=== PATIENT | female | born 1965 | race Hispanic/Latino ===

== ENCOUNTER 2018-02-15 07:27 | Emergency (ER) | payer OTHER ==
[~2018-02-15] VITALS: Ht 157.5 cm; Wt 97.3 kg
[~2018-02-15 07:27] MED LIST: JANTOVEN3 MG PO; KLOR-CON20 MEQ PO; LEVEMIR 3M100 UNITS/ SQ; NOVOLOG100 UNIT/1 SQ; PANTOPRAZOLE SO40 MG PO; QUETIAPINE FUMA25 MG PO; TORSEMIDE10 MG PO
[2018-02-15 08:21] LABS: BILIRUBIN,URINE NEGATIVE (NEGATIVE); CLARITY,URINE CLOUDY (CLEAR); COLOR,URINE YELLOW (YELLOW); KETONES,URINE TRACE (NEGATIVE); LEUKOCYTE ESTERASE ,URINE TRACE (NEGATIVE); NITRITE,URINE NEGATIVE (NEGATIVE); PROTEIN,URINE DIPSTICK NEGATIVE (NEGATIVE); URINE UROBILINOGEN 1 mg/dL (0.2 - 1)
[2018-02-15 08:31] LABS: BACTERIA,URINE MANY /HPF; EPITHELIAL CELLS,URINE FEW /LPF; RBC,URINE 21-50 /HPF (0-5)
[2018-02-15 08:32] LABS: BASOPHILS # (AUTO) 0.1 (0.0-0.1); BASOPHILS % 0.7 % (0.0-1.0); EOSINOPHILS # (AUTO) 0.1 (0.0-0.4); EOSINOPHILS % 1.2 % (0.0-6.0); HEMOGLOBIN 15.3 g/dL (12.0-16.0); LYMPHOCYTES # (AUTO) 2.7 (1.0-3.2); LYMPHOCYTES % 25.5 % (18.0-39.1); MEAN CORPUSCULAR HEMOGLOBIN 27.8 pg (28-32); MEAN CORPUSCULAR VOLUME 81.8 fL (81-99); MONOCYTES # (AUTO) 1.2 (0.2-0.8); MONOCYTES % 11.6 % (4.4-11.3); NEUTROPHILS # (AUTO) 6.5 (2.1-6.9); NEUTROPHILS % 60.4 % (38.7-80.0); PLATELET COUNT 209 x10e3/uL (140-360); RED CELL DISTRIBUTION WIDTH 12.8 % (11.7-14.4)
[2018-02-15] MEDS ORDERED: ACETAMINOPHEN 325 MG TAB PO ONE (08:45)
[2018-02-15 08:49] LABS: ANION GAP 17.2 mmol/L (8-16); BLOOD UREA NITROGEN 13 mg/dL (7-26); BUN/CREATININE RATIO 15 (6-25); CALCIUM 9.5 mg/dL (8.4-10.2); CARBON DIOXIDE 25 mmol/L (22-29); CHLORIDE 98 mmol/L (98-107); CREATININE, SERUM 0.86 mg/dL (0.57-1.11); EST GLOMERULAR FILTRATION RATE > 60 ML/MIN (60-); GLUCOSE 348 mg/dL (74-118); POTASSIUM 4.2 mmol/L (3.5-5.1); SODIUM 136 mmol/L (136-145)
--- NOTE | 2018-02-15 09:01 | Diagnostic Imaging Report ---
PROCEDURE: CHEST SINGLE (PORTABLE) COMPARISON: None. INDICATIONS: FEVER, CHILLS, HEADACHE FINDINGS: LINES: None. LUNGS: Low lung volumes, which limits evaluation for pathology. Mild patchy opacities are present the right lung base. No evidence of pulmonary edema. PLEURA: Trace right-sided pleural effusion. No evidence of pneumothorax. HEART \T\ MEDIASTINUM: The cardiomediastinal silhouette is unremarkable. BONES \T\ SOFT TISSUES: No acute findings. CONCLUSION: Low lung volumes with mild patchy opacities at the right lung base. Findings likely represent atelectasis although aspiration or pneumonia are possible in the appropriate clinical context. Dictated by: JOSÉ ANTONIO CLEVELAND M.D. on 02/15/2018 at 9:05 Electronically approved by: JOSÉ ANTONIO CLEVELAND M.D. on 02/15/2018 at 9:05
[2018-02-15] MEDS ORDERED: CEFTRIAXONE SOD 1 GM VIAL IV ONE (11:25)
[2018-02-15] MEDS ORDERED: SODIUM CHLORIDE 0.9% 1000ML 1,000 ML ONE (11:27)
[2018-02-15] MEDS ORDERED: SODIUM CHLORIDE 0.9% 1000ML 1,000 ML IV SCH (11:30)
[2018-02-15] MEDS ORDERED: INSULIN REGULAR, HUMAN 100 UNIT/1 ML 3ML VIAL SQ ONE (14:00)
[2018-02-15 14:19] VITALS: BP 99/56
== END 2018-02-15 14:17 | disposition home or self-care (01) ==
LOC: ER 07:27
DX: R50.9 Fever, unspecified (principal); R05 Cough; R51 Headache; R30.0 Dysuria; N39.0 Urinary tract infection, site not specified
CPT/HCPCS: 36415; 71045; 80048; 81001; 83605; 85025; 87040; 99284; J0696; J7030

== ENCOUNTER 2019-02-12 08:27 | Emergency (ER) | payer OTHER ==
[~2019-02-12] VITALS: Ht 157.5 cm; Wt 97.1 kg
--- OUTSIDE RECORDS SUMMARY | 2019-02-12 08:30 | XMS REPORT ---
Author Author [facility] Address Unknown Phone Unavailable Care Team Providers Care Tractor Operator Battery Name Role Phone TRINIDADCooper GLENIS Unavailable Unavailable Problems This patient has no known problems. Allergies, Adverse Reactions, Alerts This patient has no known allergies or adverse reactions. Medications This patient has no known medications. Results Test Description Test Time Test Comments Text Results Atomic Results Result Comments SCR MAMM BILATERAL DELIA CAD DIGITAL 2018-11-26 10:04:45 - SCR MAMM BILATERAL DELIA CAD DIGITALBILATERAL DIGITAL SCREENING MAMMOGRAM 3D/2D WITH CAD: 11/23/2018CLINICAL: Asymptomatic. Digital breast tomosynthesis was performed in addition to routine CC and MLO views. Current mammographic images were evaluated by either a Calvin M-Vu or an Tour DeskD version 7.2 computer aided detection system. Comparison is made to exams dated 03/31/2017 mammogram, 03/14/2016 mammogram, and 02/03/2011 mammogram - [facility]. There are scattered fibroglandular tissues in both breasts. There are benign calcifications in both breasts. No suspicious mass, architectural distortion, malignant type calcification, or lymph node abnormality detected. Breast architecture is stable compared to prior exams.IMPRESSION: BENIGNThere is no mammographic evidence of malignancy. Resume annual screening mammography in one year. Anna brunson/penrad:11/26/2018 10:04:45 Pipe Coremaker: Yolanda RASHEED, [facility]: BIRADS 1-2 Normal Mammogram BI-RADS: 2 Benign CHEST SINGLE (PORTABLE) 2018-02-15 09:05:00 [place] [id number] Patient Name: GABY STEEN MR #: [id number] : 1965 Age/Sex: 52/F Req #: [id number] [facility] Physician: Ordered by: GLENIS ABDI MD Report #: [id number] Location: ER Room/Bed: Procedure: [id number] DX/CHEST SINGLE (PORTABLE) Exam Date: 02/15/18 Exam Time: 819 REPORT STATUS: Signed PROCEDURE: CHEST SINGLE (PORTABLE) COMPARISON: None. INDICATIONS: FEVER, CHILLS, HEADACHE FINDINGS: LINES: None. LUNGS: Low lung volumes, which limits evaluation for pathology. Mild patchy opacities are present the right lung base. No evidence of pulmonary edema. PLEURA: Trace right-sided pleural effusion. No evidence of pneumothorax. HEART T MEDIASTINUM: The cardiomediastinal silhouette is unremarkable. BONES T SOFT TISSUES: No acute findings. CONCLUSION: Low lung volumes with mild patchy opacities at the right lung base. Findings likely represent atelectasis although aspiration or pneumonia are possible in the appropriate clinical context. Dictated by: JOSÉ ANTONIO CLEVELAND M.D. on 02/15/2018 at 9:05 Electronically approved by: JOSÉ ANTONIO CLEVELAND M.D. on 02/15/2018 at 9:05 Dictated By: JOSÉ ANTONIO CLEVELAND MD 4 Transcribed By: ALIE on 02/15/18904 COPY TO: GLENIS ABDI MD
[2019-02-12 09:22] LABS: BILIRUBIN,URINE SMALL (NEGATIVE); CLARITY,URINE SL CLOUDY (CLEAR); COLOR,URINE YELLOW (YELLOW); KETONES,URINE NEGATIVE (NEGATIVE); LEUKOCYTE ESTERASE ,URINE NEGATIVE (NEGATIVE); NITRITE,URINE NEGATIVE (NEGATIVE); PROTEIN,URINE DIPSTICK 2+ (NEGATIVE); URINE UROBILINOGEN 0.2 mg/dL (0.2 - 1)
[2019-02-12 09:28] LABS: BASOPHILS % 0.4 % (0.0-1.0); EOSINOPHILS # (AUTO) 0.1 (0.0-0.4); EOSINOPHILS % 1.7 % (0.0-6.0); HEMATOCRIT 50.2 % (34.2-44.1); HEMOGLOBIN 16.8 g/dL (12.0-16.0); LYMPHOCYTES # (AUTO) 1.7 (1.0-3.2); LYMPHOCYTES % 21.5 % (18.0-39.1); MEAN CORPUSCULAR HEMOGLOBIN 27.5 pg (28-32); MEAN CORPUSCULAR HGB CONC 33.5 g/dL (31-35); MEAN CORPUSCULAR VOLUME 82.3 fL (81-99); MONOCYTES % 12.6 % (4.4-11.3); NEUTROPHILS # (AUTO) 5.1 (2.1-6.9); NEUTROPHILS % 63.6 % (38.7-80.0); PLATELET COUNT 225 x10e3/uL (140-360); RED CELL DISTRIBUTION WIDTH 12.8 % (11.7-14.4)
[2019-02-12 09:28] LABS: PREGNANCY TEST, URINE NEGATIVE (NEGATIVE)
[2019-02-12 09:45] LABS: ALBUMIN 3.4 g/dL (3.5-5.0); ALBUMIN/GLOBULIN RATIO 0.8 (0.8-2.0); ANION GAP 18.2 mmol/L (8-16); CALCIUM 9.4 mg/dL (8.4-10.2); CREATININE, SERUM 0.98 mg/dL (0.57-1.11); POTASSIUM 3.2 mmol/L (3.5-5.1)
[2019-02-12] MEDS ORDERED: SODIUM CHLORIDE 0.9% 1000ML 1,000 ML IV SCH (10:00)
[2019-02-12 10:11] LABS: BACTERIA,URINE FEW /HPF; EPITHELIAL CELLS,URINE FEW /LPF
[2019-02-12] MEDS ORDERED: ONDANSETRON HCL INJ 2MG/ML 2ML 2 MG/ML VIAL IV ONE (11:00)
[2019-02-12] MEDS ORDERED: POTASSIUM CHLORIDE 20 MEQ TAB CR PO ONE (11:00)
== END 2019-02-12 13:09 | disposition home or self-care (01) ==
LOC: ER 08:27
DX: R19.7 Diarrhea, unspecified (principal); I10 Essential (primary) hypertension; E11.9 Type 2 diabetes mellitus without complications; I48.91 Unspecified atrial fibrillation
CPT/HCPCS: 36415; 80053; 81001; 81025; 85025; 99284; J2405; J7030